=== PATIENT | female | born 1985 | race Caucasian/White ===

== ENCOUNTER 2021-05-14 13:45 | Outpatient (CLI) | payer OTHER | END 2021-05-14 13:58 | disposition home or self-care (01) | LOC: RAD 13:45 | DX: S89.90XA Unspecified injury of unspecified lower leg, initial encounter (principal); M25.562 Pain in left knee; M54.2 Cervicalgia; M54.6 Pain in thoracic spine; M54.50 Low back pain, unspecified ==

== ENCOUNTER 2021-07-15 12:11 | Emergency (ER) | payer OTHER ==
[~2021-07-15] VITALS: Ht 154.9 cm; Wt 48.5 kg
[2021-07-15] MEDS ORDERED: NORETHIND-ETH1 EAC1 (12:25)
[2021-07-15] MEDS ORDERED: ZYRTEC10 M3 PO (12:26)
[2021-07-15] MEDS ORDERED: CLARITIN5 MG (12:27)
[2021-07-15] MEDS ORDERED: METHYLPREDNISOLO8 MG (12:27)
[2021-07-15] MEDS ORDERED: BENADRYL ALLERG25 MG PO (12:28)
[2021-07-15] MEDS ORDERED: ROSADAN45 G1 (12:29)
[2021-07-15] MEDS ORDERED: FLUCONAZOL10 MG/1 ML (12:29)
== END 2021-07-15 14:11 | disposition home or self-care (01) ==
LOC: ER 12:11
DX: L27.0 Generalized skin eruption due to drugs and medicaments taken internally (principal); T50.995A Adverse effect of other drugs, medicaments and biological substances, initial encounter; Z88.8 Allergy status to other drugs, medicaments and biological substances

== ENCOUNTER 2021-07-15 18:30 | Emergency (ER) | payer OTHER ==
[~2021-07-15] VITALS: Ht 154.9 cm; Wt 48.5 kg
[~2021-07-15 18:30] MED LIST: BENADRYL ALLERG25 MG PO; CLARITIN5 MG; FLUCONAZOL10 MG/1 ML; METHYLPREDNISOLO8 MG; NORETHIND-ETH1 EAC1; ROSADAN45 G1; ZYRTEC10 M3 PO
== END 2021-07-15 21:05 | disposition home or self-care (01) ==
LOC: ER 18:30
DX: L50.9 Urticaria, unspecified (principal)

== ENCOUNTER 2021-07-16 20:52 | Emergency (ER) | payer OTHER ==
[~2021-07-16] VITALS: Ht 154.9 cm; Wt 48.5 kg
== END 2021-07-16 23:59 | disposition home or self-care (01) ==
LOC: ER 20:52
DX: T38.0X5A Adverse effect of glucocorticoids and synthetic analogues, initial encounter (principal); X58.XXXA Exposure to other specified factors, initial encounter; Y92.9 Unspecified place or not applicable; Z88.8 Allergy status to other drugs, medicaments and biological substances